=== PATIENT | male | born 1980 | race African-American/Black ===

== ENCOUNTER 2023-07-18 15:36 | Inpatient (IN) | payer OTHER ==
[2023-07-18 19:30] VITALS: BMI 19.0
[2023-07-18] MEDS ORDERED: DICYCLOMINE HCL 10 MG CAPSULE PO PRN (19:36)
[2023-07-18] MEDS ORDERED: MAG HYDROX/AL HYDROX/SIMETH 30 ML UNIT-DOSE CUP PO PRN (19:36)
[2023-07-18] MEDS ORDERED: NICOTINE POLACRILEX 2 MG GUM BUC PRN (19:36)
[2023-07-18] MEDS ORDERED: BISMUTH SUBSALICYLATE 524 MG/30 ML PO PRN (19:36)
[2023-07-18] MEDS ORDERED: ACETAMINOPHEN 325 MG TABLET (FP) PO PRN (19:36)
[2023-07-18] MEDS ORDERED: guaiFENesin 600 MG TABLET.ER (FP) PO PRN (19:36)
[2023-07-18] MEDS ORDERED: BENZONATATE 200 MG CAPSULE PO PRN (19:36)
[2023-07-18] MEDS ORDERED: BENZOCAINE/MENTHOL (CHLORASEPTIC ) LOZENGE MM PRN (19:36)
[2023-07-18] MEDS ORDERED: NALOXONE HCL 0.4 MG/ML VIAL IM PRN (19:36)
[2023-07-18] MEDS ORDERED: NALOXONE HCL (KLOXXADO) 8 MG SPRAY NS PRN (19:36)
[2023-07-18] MEDS ORDERED: LOPERAMIDE HCL 2 MG CAPSULE PO PRN (19:36)
[2023-07-18] MEDS ORDERED: IBUPROFEN 400 MG TABLET (FP) PO PRN (19:36)
[2023-07-18] MEDS ORDERED: ONDANSETRON *ODT* 4 MG TABLET SL PRN (19:36)
[2023-07-18] MEDS ORDERED: chlordiazePOXIDE HCL 25 MG CAPSULE PO PRN (19:36)
[2023-07-18] MEDS ORDERED: IBUPROFEN 600 MG TABLET (FP) PO PRN (19:36)
[2023-07-18] MEDS ORDERED: MAGNESIUM HYDROX 2400MG/30ML ORAL SUSPENSION 30 ML CUP PO PRN (19:36)
[2023-07-18] MEDS ORDERED: POLYETHYLENE GLYCOL (HEALTHYLAX) 3350 17 GM PACKET PO PRN (19:36)
[2023-07-18] MEDS: chlordiazePOXIDE HCL 25 MG CAPSULE PO SCH (22:06)
[2023-07-18] MEDS: THIAMINE HCL 100 MG TABLET (FP) PO SCH (22:06)
[2023-07-18] MEDS: METHOCARBAMOL 500 MG TABLET PO PRN (22:06)
[2023-07-18] MEDS: MELATONIN 5 MG TABLETS PO SCH (22:06)
[2023-07-19] MEDS: chlordiazePOXIDE HCL 25 MG CAPSULE PO SCH ×4 (05:53→22:07)
[2023-07-19] MEDS: NICOTINE 21 MG/24 HOURS TOPICAL PATCH TD SCH (10:05)
[2023-07-19] MEDS: PRENATAL VITAMINS W/ FOLIC ACID TABLET (FP) PO SCH (10:06)
[2023-07-19 11:26] LABS: PH,URINE 8.5 (5.0-8.0); URINE APPEARANCE CLEAR; URINE BILIRUBIN NEGATIVE (NEGATIVE); URINE COLOR YELLOW; URINE GLUCOSE (UA) NEGATIVE (NEGATIVE); URINE KETONE NEGATIVE (NEGATIVE); URINE LEUK ESTERASE NEGATIVE (NEGATIVE); URINE NITRITE NEGATIVE (NEGATIVE); URINE PROTEIN NEGATIVE (NEGATIVE)
[2023-07-19] MEDS ORDERED: DIVALPROEX SODIUM 500 MG TABLET E.C. PO SCH (22:00)
[2023-07-19] MEDS ORDERED: risperiDONE 1 MG TABLET PO SCH (22:00)
[2023-07-19] MEDS: MELATONIN 5 MG TABLETS PO SCH (22:06)
[2023-07-19] MEDS: THIAMINE HCL 100 MG TABLET (FP) PO SCH (22:06)
[2023-07-20] MEDS: chlordiazePOXIDE HCL 25 MG CAPSULE PO SCH ×4 (05:11→22:46)
[2023-07-20] MEDS: PRENATAL VITAMINS W/ FOLIC ACID TABLET (FP) PO SCH (10:12)
[2023-07-20] MEDS: NICOTINE 21 MG/24 HOURS TOPICAL PATCH TD SCH (10:12)
[2023-07-20] MEDS: risperiDONE 1 MG TABLET PO SCH ×2 (10:13→22:45)
[2023-07-20] MEDS: DIVALPROEX SODIUM 500 MG TABLET E.C. PO SCH ×2 (10:13→22:45)
[2023-07-20] MEDS: THIAMINE HCL 100 MG TABLET (FP) PO SCH (22:45)
[2023-07-20] MEDS: MELATONIN 5 MG TABLETS PO SCH (22:45)
[2023-07-21] MEDS ORDERED: chlordiazePOXIDE HCL 10 MG CAPSULE PO PRN
[2023-07-21] MEDS: chlordiazePOXIDE HCL 10 MG CAPSULE PO SCH ×4 (05:20→22:39)
[2023-07-21] MEDS: NICOTINE 21 MG/24 HOURS TOPICAL PATCH TD SCH (10:03)
[2023-07-21] MEDS: PRENATAL VITAMINS W/ FOLIC ACID TABLET (FP) PO SCH (10:04)
[2023-07-21] MEDS: DIVALPROEX SODIUM 500 MG TABLET E.C. PO SCH ×2 (10:04→22:38)
[2023-07-21] MEDS: risperiDONE 1 MG TABLET PO SCH ×2 (10:04→22:39)
[2023-07-21] MEDS: MELATONIN 5 MG TABLETS PO SCH (22:38)
[2023-07-21] MEDS: THIAMINE HCL 100 MG TABLET (FP) PO SCH (22:39)
[2023-07-21] MEDS: METHOCARBAMOL 500 MG TABLET PO PRN (22:39)
[2023-07-22] MEDS: chlordiazePOXIDE HCL 10 MG CAPSULE PO SCH ×2 (05:53→17:24)
[2023-07-22] MEDS: PRENATAL VITAMINS W/ FOLIC ACID TABLET (FP) PO SCH (10:05)
[2023-07-22] MEDS: NICOTINE 21 MG/24 HOURS TOPICAL PATCH TD SCH (10:05)
[2023-07-22] MEDS: DIVALPROEX SODIUM 500 MG TABLET E.C. PO SCH ×2 (10:06→22:00)
[2023-07-22] MEDS: risperiDONE 1 MG TABLET PO SCH ×2 (10:06→22:00)
[2023-07-22] MEDS: METHOCARBAMOL 500 MG TABLET PO PRN (22:00)
[2023-07-22] MEDS: THIAMINE HCL 100 MG TABLET (FP) PO SCH (22:00)
[2023-07-22] MEDS: MELATONIN 5 MG TABLETS PO SCH (22:00)
[2023-07-23] MEDS ORDERED: chlordiazePOXIDE HCL 10 MG CAPSULE PO ONE (05:00)
[2023-07-23 06:23] VITALS: RESP 16
[2023-07-23 08:50] VITALS: BP 115/70; PULSE 90; TEMP 97.6
[2023-07-23] MEDS: PRENATAL VITAMINS W/ FOLIC ACID TABLET (FP) PO SCH (09:46)
[2023-07-23] MEDS: NICOTINE 21 MG/24 HOURS TOPICAL PATCH TD SCH (09:46)
[2023-07-23] MEDS: DIVALPROEX SODIUM 500 MG TABLET E.C. PO SCH (09:46)
[2023-07-23] MEDS: risperiDONE 1 MG TABLET PO SCH (09:47)
== END 2023-07-23 09:20 | disposition home or self-care (01) | DRG 775 ==
LOC: YASAS 15:36 → Y3N 20:35
PROVIDERS: ADMIT Allergy & Immunology; ATTEND Surgery
PROC: HZ2ZZZZ Detoxification Services for Substance Abuse Treatment (ICD-10-PCS; principal; 2023-07-18)
DX: F10.230 Alcohol dependence with withdrawal, uncomplicated (principal); F12.20 Cannabis dependence, uncomplicated; F17.210 Nicotine dependence, cigarettes, uncomplicated; F25.1 Schizoaffective disorder, depressive type; F19.24 Other psychoactive substance dependence with psychoactive substance-induced mood disorder; F41.9 Anxiety disorder, unspecified; Z87.09 Personal history of other diseases of the respiratory system
CPT/HCPCS: 80164; 81003; 87635; 87811; 93005; 93010